=== PATIENT | female | born 2000 | race African-American/Black ===

== ENCOUNTER 2023-11-23 20:11 | Inpatient (IN) ==
[2023-11-23 21:20] LABS: ABS Monocytes 0.3 10^3/uL (0.0-0.9); ABS Neutrophils 3.8 10^3/uL (1.5-7.6); ABS Nucleated RBC 0.01 10^3/ul; Eosinophil % 0.4 %; Hematocrit 37.7 % (35-45); Hemoglobin 12.5 g/dL (11.5-14.3); Lymphocyte % 19.7 %; Mean Corpuscular Hemoglobin 26.5 pg (27-33); Mean Corpuscular Hgb Conc 33.2 g/dL (31-36); Mean Corpuscular Volume 79.8 fL (80-97); Mean Platelet Volume 7.5 fL (7.5-11.2); Nucleated Red Blood Cells % 0.1 %/100WBC (0.0-0.8); Platelet Count 268 10^3/uL (150-450); Red Blood Count 4.72 10^6/uL (3.63-4.92); Red Cell Distribution Width 17.5 % (12-17); White Blood Count 5.2 10^3/uL (3.8-11.8)
[2023-11-23 21:31] LABS: Urine Appearance Clear; Urine Bilirubin Negative (Negative); Urine Blood Negative (Negative); Urine Color Yellow; Urine Glucose Negative (Negative); Urine Ketones 2+ (Negative); Urine Nitrite Negative (Negative); Urine Protein 1+(30 mg/dL) (Negative); Urine Specific Gravity 1.023 (1.002-1.030); Urine Urobilinogen Negative (Negative)
[2023-11-23 21:39] LABS: ALT 8 U/L (7-52); AST 14 U/L (13-39); Albumin/Globulin Ratio 1.5 (1-3); Alkaline Phosphatase 41 U/L (35-149); Anion Gap 11 mmol/L (2-16); Blood Urea Nitrogen 14 mg/dL (6-24); CO2 Carbon Dioxide 22 mmol/L (22-32); Calcium 9.8 mg/dL (8.6-10.3); Chloride 102 mmol/L (101-111); Globulin 3.3 g/dL (2-4); Glucose 93 mg/dL (70-100); Potassium 3.4 mmol/L (3.5-5.0); Sodium 135 mmol/L (135-145); Total Bilirubin 0.9 mg/dL (0.2-1.0); Total Protein 8.3 g/dL (6.4-8.9); eGFR CKD-EPI 123.8 (>60)
[2023-11-23 21:45] LABS: Acetaminophen < 15 mcg/mL; Alcohol, S < 13 mg/dL (<13); HCG Pregnancy < 0.60 mIU/mL; Salicylate < 2.50 mg/dL (<30)
[2023-11-23 21:53] LABS: Urine Bacteria Absent (Absent); Urine Red Blood Cell Trace(0-2/hpf) (Absent); Urine Squamous Epithelial Cell Present (Absent); Urine White Blood Cell Trace(0-5/hpf) (Absent)
[2023-11-23 22:41] LABS: Urine Benzodiazepine Screen None Detected (None Detect); Urine Cannabinoids Screen None Detected (None Detect); Urine Opiates Screen None Detected (None Detect)
[2023-11-23] MEDS ORDERED: Al Hydrox/Mg Hydrox/Simet LIQ 30 ML UDC PO PRN (23:20)
[2023-11-24] MEDS: Vitamin THERAPEUTIC TAB PO SCH (09:51)
[2023-11-25] MEDS: Vitamin THERAPEUTIC TAB PO SCH (13:46)
[2023-11-26] MEDS: Vitamin THERAPEUTIC TAB PO SCH (09:11)
[2023-11-26 12:55] LABS: Albumin 4.7 g/dL (3.2-5.2); Albumin/Globulin Ratio 1.5 (1-3); Calcium 9.7 mg/dL (8.6-10.3); Creatinine, Serum 0.73 mg/dL (0.51-0.95); Globulin 3.2 g/dL (2-4); HDL Cholesterol 56.4 mg/dL; Potassium 3.3 mmol/L (3.5-5.0); Total Bilirubin 0.7 mg/dL (0.2-1.0); Total Protein 7.9 g/dL (6.4-8.9); eGFR CKD-EPI 117.7 (>60)
[2023-11-26 13:40] LABS: Folate 18.1 ng/mL (5.90-24.80)
[2023-11-27] MEDS: Vitamin THERAPEUTIC TAB PO SCH (09:06)
[2023-11-28] MEDS: Vitamin THERAPEUTIC TAB PO SCH (09:10)
[2023-11-29] MEDS: Vitamin THERAPEUTIC TAB PO SCH (10:18)
[2023-11-30] MEDS: Vitamin THERAPEUTIC TAB PO SCH (10:46)
[2023-12-01] MEDS ORDERED: Ondansetron ODT 4 mg TAB 4 MG TAB SL PRN (08:18)
[2023-12-01] MEDS ORDERED: Ondansetron ODT 4 mg TAB 4 MG TAB ONE (08:19)
[2023-12-01] MEDS: Vitamin THERAPEUTIC TAB PO SCH (08:58)
[2023-12-01 16:43] LABS: Albumin 4.7 g/dL (3.2-5.2); Albumin/Globulin Ratio 1.5 (1-3); Calcium 9.8 mg/dL (8.6-10.3); Creatinine, Serum 0.73 mg/dL (0.51-0.95); Globulin 3.1 g/dL (2-4); Total Bilirubin 0.4 mg/dL (0.2-1.0); Total Protein 7.8 g/dL (6.4-8.9); eGFR CKD-EPI 117.7 (>60)
[2023-12-02] MEDS: Vitamin THERAPEUTIC TAB PO SCH (08:15)
[2023-12-03] MEDS: Vitamin THERAPEUTIC TAB PO SCH (09:02)
[2023-12-04] MEDS: Vitamin THERAPEUTIC TAB PO SCH (10:01)
[2023-12-05] MEDS: Vitamin THERAPEUTIC TAB PO SCH (10:34)
[2023-12-06] MEDS: Vitamin THERAPEUTIC TAB PO SCH (09:48)
[2023-12-07] MEDS: Vitamin THERAPEUTIC TAB PO SCH (09:08)
[2023-12-08 08:34] VITALS: BP 123/77
[2023-12-08] MEDS: Vitamin THERAPEUTIC TAB PO SCH (11:43)
== END 2023-12-08 12:42 | disposition home or self-care (01) | DRG 885 ==
LOC: ED 20:11 → BSU 23:29
PROVIDERS: ADMIT Student in an Organized Health Care Education/Training Program; ATTEND Student in an Organized Health Care Education/Training Program

== ENCOUNTER 2024-02-23 22:39 | Inpatient (IN) ==
[2024-02-23 23:35] LABS: ABS Lymphocytes 1.1 10^3/uL (1.0-4.8); ABS Monocytes 0.3 10^3/uL (0.0-0.9); ABS Neutrophils 3.5 10^3/uL (1.5-7.6); ABS Nucleated RBC 0.01 10^3/ul; Eosinophil % 0.2 %; Hematocrit 38.3 % (35-45); Hemoglobin 12.6 g/dL (11.5-14.3); Lymphocyte % 21.5 %; Mean Corpuscular Hemoglobin 26.4 pg (27-33); Mean Corpuscular Hgb Conc 32.9 g/dL (31-36); Mean Corpuscular Volume 80.3 fL (80-97); Mean Platelet Volume 7.5 fL (7.5-11.2); Nucleated Red Blood Cells % 0.2 %/100WBC (0.0-0.8); Platelet Count 320 10^3/uL (150-450); Red Blood Count 4.77 10^6/uL (3.63-4.92); Red Cell Distribution Width 18.8 % (12-17); White Blood Count 4.9 10^3/uL (3.8-11.8)
[2024-02-23 23:48] LABS: Urine Appearance Clear; Urine Bilirubin Negative (Negative); Urine Blood 1+ (Negative); Urine Color Yellow; Urine Glucose Negative (Negative); Urine Ketones 4+ (Negative); Urine Nitrite Negative (Negative); Urine Protein 1+ (>=30 mg/dL) (Negative); Urine Specific Gravity 1.027 (1.002-1.030); Urine Urobilinogen Negative (Negative); Urine pH 5.5 (5.0-8.0)
[2024-02-23 23:54] LABS: Urine Benzodiazepine Screen None Detected (None Detect); Urine Cannabinoids Screen None Detected (None Detect); Urine Opiates Screen None Detected (None Detect)
[2024-02-24 00:02] LABS: ALT 6 U/L (7-52); AST 14 U/L (13-39); Acetaminophen < 15 mcg/mL; Albumin 4.8 g/dL (3.2-5.2); Albumin/Globulin Ratio 1.7 (1-3); Alcohol, S < 13 mg/dL (<13); Alkaline Phosphatase 43 U/L (35-149); Anion Gap 13 mmol/L (2-16); Blood Urea Nitrogen 13 mg/dL (6-24); CO2 Carbon Dioxide 21 mmol/L (22-32); Calcium 9.6 mg/dL (8.6-10.3); Chloride 103 mmol/L (101-111); Creatinine, Serum 0.76 mg/dL (0.51-0.95); Globulin 2.9 g/dL (2-4); Glucose 100 mg/dL (70-100); Potassium 3.5 mmol/L (3.5-5.0); Salicylate < 2.50 mg/dL (<30); Sodium 137 mmol/L (135-145); Total Bilirubin 0.7 mg/dL (0.2-1.0); Total Protein 7.7 g/dL (6.4-8.9); eGFR CKD-EPI 112.1 (>60)
[2024-02-24 00:06] LABS: HCG Pregnancy < 0.60 mIU/mL
[2024-02-24 00:15] LABS: TSH Ultra Thyroid Stim Horm 0.88 mcIU/mL (0.34-5.60)
[2024-02-24 00:36] LABS: Urine Bacteria 1+ /HPF (Absent); Urine Red Blood Cell Trace(0-2/hpf) /HPF (0-Trace); Urine Squamous Epithelial Cell Present /HPF (Absent); Urine White Blood Cell Trace(0-5/hpf) /HPF (0-Trace)
[2024-02-24] MEDS ORDERED: Al Hydrox/Mg Hydrox/Simet LIQ 30 ML UDC PO PRN (00:52)
[2024-02-24] MEDS: Vitamin THERAPEUTIC TAB PO SCH (07:25)
[2024-02-24] MEDS ORDERED: COVID VAC 23-24(12+)(Moderna) SYR 0.5 ML IM ONE (09:00)
[2024-02-26 08:39] LABS: HDL Cholesterol 56.2 mg/dL
[2024-02-29 09:17] VITALS: BP 118/74
== END 2024-03-01 08:15 | disposition home or self-care (01) | DRG 885 ==
LOC: ED 22:39 → EDHOLD 02-24 00:49 → BSU 02-24 01:07
PROVIDERS: ADMIT Psychiatry & Neurology Psychiatry; ATTEND Psychiatry & Neurology Psychiatry